=== PATIENT | female | born 1975 | race Caucasian/White ===

== ENCOUNTER 2017-09-10 00:44 | Emergency (ER) | payer SELFPAY ==
[2017-09-10] MEDS ORDERED: HYDROMORPHONE HCL INJ/PF 2 MG/ML AMPULE IV ONE ×2 (01:01→02:42)
--- NOTE | 2017-09-10 01:18 | ER Document Report ---
ED Fall - General Stated Complaint: LEFT FLANK PAIN Time Seen by Provider: 09/10/17 01:00 Mode of Arrival: Medic Information source: Patient Notes: 41-year-old female patient presents via EMS after she tripped over a yoga ball and fell hitting her left side onto a futon. Patient reports that she has severe pain to her left posterior ribs as well as some shortness of breath. EMS gave patient 75 mcg of fentanyl as well as 4 mg of Zofran IV. Patient reports past medical history of diverticulitis. TRAVEL OUTSIDE OF THE [place] IN LAST 30 DAYS: No - Related data Allergies/Adverse Reactions: No Known Allergies Allergy (Unverified 10/25/13 06:33) Past Medical History - General Information source: Patient - Social History Smoking Status: Current Some Day Smoker Chew tobacco use (# tins/day): No Frequency of alcohol use: Rare Drug Abuse: None Lives with: Family Family History: Reviewed & Not Pertinent GI Medical History: Reports: Hx Diverticulitis Past Surgical History: Reports: Hx Orthopedic Surgery - Left knee Review of Systems - Review of Systems Constitutional: No symptoms reported EENT: No symptoms reported Cardiovascular: No symptoms reported Respiratory: See HPI Gastrointestinal: No symptoms reported Genitourinary: No symptoms reported Female Genitourinary: No symptoms reported Musculoskeletal: See HPI Skin: No symptoms reported Hematologic/Lymphatic: No symptoms reported Neurological/Psychological: No symptoms reported Physical Exam - Vital signs Vitals: Resp Pulse Ox 15 98 09/10/17 00:57 09/10/17 00:57 - Notes Notes: PHYSICAL EXAMINATION: GENERAL: Well-appearing, well-nourished adult female in moderate distress. HEAD: Atraumatic, normocephalic. EYES: Pupils equal round and reactive to light, extraocular movements intact, conjunctiva are normal. ENT: Nares patent, oropharynx clear without exudates. Moist mucous membranes. NECK: Normal range of motion, supple without lymphadenopathy LUNGS: Breath sounds clear to auscultation bilaterally and equal. No wheezes rales or rhonchi. HEART: Regular rate and rhythm without murmurs ABDOMEN: Soft, nontender, nondistended abdomen. No guarding, no rebound. No masses appreciated. Female : deferred Musculoskeletal: Normal range of motion, no pitting or edema. No cyanosis. TTP to posterior surface of left ribs, mild swelling noted with no ecchymosis. NEUROLOGICAL: Cranial nerves grossly intact. Normal speech. Normal sensory, motor exams PSYCH: Normal mood, normal affect. SKIN: Warm, Dry, normal turgor, no rashes or lesions noted. Course - Re-evaluation Re-evalutation: 41-year-old female patient presenting via EMS after a mechanical fall in which she hit the posterior surface of her left ribs onto a wooden futon. Patient's lung sounds clear and equal bilaterally however patient does report significant pain with inspiration. There is an area of swelling noted as well with no ecchymosis. Will medicate patient for pain and sent for x-ray to evaluate for rib fracture. Mildly displaced (2mm) left 8th rib fracture noted on xray, No pneumothorax. Patients vitals signs stable, will d/c with pain medications. Spoke with patient at length on the importance of taking deep breaths despite the pain to prevent any complications. - Vital Signs Vital signs: Temp Pulse Resp BP Pulse Ox 97.9 F 13 100/64 94 09/10/17 02:01 09/10/17 02:01 09/10/17 02:01 09/10/17 02:01 Discharge - Discharge Clinical Impression: Left rib fracture Qualifiers: Encounter type: initial encounter Rib fracture type: single rib Fracture type: closed Qualified Code(s): S22.32XA - Fracture of one rib, left side, initial encounter for closed fracture Condition: Stable Disposition: HOME, SELF-CARE Additional Instructions: Rib Injuries and Fractures You have been diagnosed as having a broken rib. It will usually take four to six weeks for these injured ribs to heal. Sometimes, rib belts or anesthetic injections of the chest wall help reduce the pain. If you are using a rib belt, you should cough or take a deep breath at least every hour or two to prevent lung complications. You should not engage in any strenuous physical activity until released by your physician. The usual rule is "if it hurts, don't do it." Rib fractures can lead to serious lung complications including lung collapse, hemorrhage, and pneumonia. You should call the physician or return at once if any of the following occur: (1) Fever or chills. (2) Persistent cough, coughing up blood, or shortness of breath. (3) Increasing pain. (4) Weakness, lightheadedness, or fainting. Please take the medications as prescribed. Please make sure that you are taking good deep breaths. Please follow-up with your primary care provider in the next 3-5 days for a follow-up. Prescriptions: Ibuprofen 800 mg PO Q8 #40 tablet Morphine Sulfate [Morphine Ir 15 Mg Tablet] 15 mg PO Q4H PRN #12 tablet PRN Reason: Ondansetron [Zofran Odt 4 mg Tablet] 1 - 2 tab PO Q4H PRN #15 tab.rapdis PRN Reason: For Nausea/Vomiting Referrals: [facility] [NO LOCAL MD] - Follow up as needed
--- NOTE | 2017-09-10 01:55 | RADIOLOGY REPORT (SQ) ---
EXAM DESCRIPTION: XR RIBS BILATERAL WITH CHEST CLINICAL HISTORY: 41 years Female, fall, left posterior rib pain COMPARISON: None. TECHNIQUE: Four views. FINDINGS: Adequate lung volume, clear parenchyma, normal cardiac silhouette, and intact bony thorax. Left eighth posterior rib fracture with 2 mm displacement.. No pneumothorax. IMPRESSION: Left eighth posterior rib fracture. No pneumothorax. No acute cardiopulmonary findings.
[2017-09-10] MEDS ORDERED: HYDROCODONE/ACETAMINOPHEN 5-325 MG (6 TAB/ER DISP) PO PRN (02:25)
[2017-09-10] MEDS ORDERED: ONDANSETRON 4 MG TAB.RAPDIS PO ONE (02:25)
[2017-09-10 03:14] VITALS: BP 100/64
== END 2017-09-10 03:14 | disposition home or self-care (01) ==
LOC: ER 00:44
DX: S22.32XA Fracture of one rib, left side, initial encounter for closed fracture (principal); R10.9 Unspecified abdominal pain; R06.02 Shortness of breath; W01.190A Fall on same level from slipping, tripping and stumbling with subsequent striking against furniture, initial encounter; F17.200 Nicotine dependence, unspecified, uncomplicated
CPT/HCPCS: 99284; 71111; S0119; J1170

== ENCOUNTER 2017-09-15 19:12 | Emergency (ER) | payer SELFPAY ==
[2017-09-15] MEDS ORDERED: FENTANYL CITRATE INJ/PF 100 MCG/2 ML AMPUL IV ONE (20:05)
[2017-09-15] MEDS ORDERED: KETOROLAC TROMETHAMINE INJ/PF 30 MG/1 ML SDV IV ONE (20:05)
--- NOTE | 2017-09-15 20:08 | ER Document Report ---
ED Medical Screen (RME) - General Chief Complaint: Abdominal Pain Stated Complaint: ABDOMINAL/RIB PAIN Time Seen by Provider: 09/15/17 20:04 Notes: Patient was seen here last Friday after falling and injuring her ribs and was found to have a fractured left rib. She has been prescribed pain medications including narcotic medications and has now become constipated from taking those medications. Says she has not had a bowel movement since her injury. Denies nausea or vomiting. Not much cough. No fevers. Took 60 mL of milk of magnesia this afternoon. TRAVEL OUTSIDE OF THE [place] IN LAST 30 DAYS: No - Related Data Allergies/Adverse Reactions: No Known Allergies Allergy (Verified 09/15/17 19:13) Past Medical History Neurological Medical History: Reports: Hx Migraine Renal/ Medical History: Denies: Hx Peritoneal Dialysis GI Medical History: Reports: Hx Diverticulitis Past Surgical History: Reports: Hx Orthopedic Surgery - Left knee Physical Exam - Vital signs Vitals: Temp Pulse Resp BP Pulse Ox 98.2 F 76 16 106/71 97 09/15/17 19:26 09/15/17 19:26 09/15/17 19:26 09/15/17 19:26 09/15/17 19:26 Course - Vital Signs Vital signs: Temp Pulse Resp BP Pulse Ox 98.2 F 76 16 106/71 97 09/15/17 19:26 09/15/17 19:26 09/15/17 19:26 09/15/17 19:26 09/15/17 19:26
[2017-09-15 20:30] LABS: ABSOLUTE BASOPHILS # (AUTO) 0.1 10^3/uL (0.0-0.2); ABSOLUTE EOSINOPHILS # (AUTO) 0.3 10^3/uL (0.0-0.6); ABSOLUTE LYMPHOCYTES (AUTO) 2.9 10^3/uL (0.5-4.7); ABSOLUTE MONOCYTES (AUTO) 0.9 10^3/uL (0.1-1.4); ABSOLUTE NEUT (AUTO) 9.2 10^3/uL (1.7-8.2); BASOPHILS % (AUTO) 0.5 % (0-2); HEMATOCRIT 42.7 % (36.0-47.0); HEMOGLOBIN 14.5 g/dL (12.0-15.5); LYMPHOCYTES % (AUTO) 21.5 % (13-45); MEAN CORPUSCULAR HEMOGLOBIN 29.7 pg (27.0-33.4); MEAN CORPUSCULAR VOLUME 87 fl (80-97); MONOCYTES % (AUTO) 7.1 % (3-13); PLATELET COUNT 210 10^3/uL (150-450); RED BLOOD COUNT 4.89 10^6/uL (3.72-5.28); SEGMENTED NEUTROPHILS % (AUTO) 68.9 % (42-78); TOTAL CELLS COUNTED % (AUTO) 100 %; WHITE BLOOD COUNT 13.3 10^3/uL (4.0-10.5)
[2017-09-15 20:41] LABS: ALANINE AMINOTRANSFERASE 21 U/L (9-52); ALBUMIN 3.9 g/dL (3.5-5.0); ALKALINE PHOSPHATASE 38 U/L (38-126); ANION GAP 10 (5-19); ASPARTATE AMINO TRANSFERASE 13 U/L (14-36); BILIRUBIN,DIRECT 0.3 mg/dL (0.0-0.4); BILIRUBIN,TOTAL 0.4 mg/dL (0.2-1.3); BLOOD UREA NITROGEN 10 mg/dL (7-20); CALCIUM 9.3 mg/dL (8.4-10.2); CARBON DIOXIDE 27 mmol/L (22-30); CHLORIDE 102 mmol/L (98-107); GLUCOSE 91 mg/dL (75-110); LIPASE 27.1 U/L (23-300); POTASSIUM 4.7 mmol/L (3.6-5.0); SODIUM 138.5 mmol/L (137-145); TOTAL PROTEIN 6.3 g/dL (6.3-8.2)
--- NOTE | 2017-09-15 21:12 | RADIOLOGY REPORT (SQ) ---
EXAM DESCRIPTION: CHEST 2 VIEWS COMPLETED DATE/TIME: 09/15/2017 8:36 pm REASON FOR STUDY: Hx fracture left ribs, worsening pain COMPARISON: 09/10/2017 EXAM PARAMETERS: NUMBER OF VIEWS: two views TECHNIQUE: Digital Frontal and Lateral radiographic views of the chest acquired. RADIATION DOSE: NA LIMITATIONS: none FINDINGS: LUNGS AND PLEURA: No acute opacities, masses or pneumothorax. No pleural effusion. MEDIASTINUM AND HILAR STRUCTURES: No masses or contour abnormalities. HEART AND VASCULAR STRUCTURES: Heart normal size. No evidence for failure. BONES: No acute findings. Nondisplaced left posterior 8th rib fracture. HARDWARE: None in the chest. OTHER: No other significant finding. IMPRESSION: NO ACUTE RADIOGRAPHIC FINDING IN THE CHEST. TECHNICAL DOCUMENTATION: JOB ID: [id number] [place]-72 2010 [employer] All Rights Reserved Reading location - IP/workstation name: [email or web address]
--- NOTE | 2017-09-15 22:16 | ER Document Report ---
ED General - General Chief Complaint: Abdominal Pain Stated Complaint: ABDOMINAL/RIB PAIN Time Seen by Provider: 09/15/17 20:04 Mode of Arrival: Ambulatory Information source: Patient Notes: 41-year-old female presents emergency department with complaints of suprapubic abdominal pain and constipation. Patient states that she fell and broke her rib approximately a week ago. She was started on narcotic medication for pain management. Patient states that she has been taking this medication and she has been constipated. Patient states that she has not had a bowel movement in the last week. She states that now she is getting some abdominal discomfort. Patient has tried [id number] medication without any symptom relief. She has not tried an enema. She states that she is not currently on any narcotic medication. She denies nausea, vomiting, diarrhea, dysuria, hematuria, vaginal bleeding or vaginal discharge. TRAVEL OUTSIDE OF THE [place] IN LAST 30 DAYS: No - HPI Onset: Last week Onset/Duration: Gradual Quality of pain: Achy, Fullness Pain Level: 4 Associated symptoms: Other - constipation Exacerbated by: Denies Relieved by: Denies Similar symptoms previously: No Recently seen / treated by doctor: No - Related Data Allergies/Adverse Reactions: No Known Allergies Allergy (Verified 09/15/17 19:13) Past Medical History - Social History Smoking Status: Never Smoker Family History: Reviewed & Not Pertinent Patient has suicidal ideation: No Patient has homicidal ideation: No Neurological Medical History: Reports: Hx Migraine Renal/ Medical History: Denies: Hx Peritoneal Dialysis GI Medical History: Reports: Hx Diverticulitis Past Surgical History: Reports: Hx Orthopedic Surgery - Left knee Review of Systems - Review of Systems Constitutional: No symptoms reported EENT: No symptoms reported Cardiovascular: No symptoms reported Respiratory: No symptoms reported Gastrointestinal: Constipation Genitourinary: No symptoms reported Musculoskeletal: No symptoms reported Skin: No symptoms reported Neurological/Psychological: No symptoms reported -: Yes All other systems reviewed and negative Physical Exam - Vital signs Vitals: Temp Pulse Resp BP Pulse Ox 98.2 F 76 16 106/71 97 09/15/17 19:26 09/15/17 19:26 09/15/17 19:26 09/15/17 19:26 09/15/17 19:26 Interpretation: Normal - Notes Notes: PHYSICAL EXAMINATION: GENERAL: Well-appearing, well-nourished and in no acute distress. HEAD: Atraumatic, normocephalic. EYES: Pupils equal round and reactive to light, extraocular movements intact, conjunctiva are normal. ENT: Nares patent, oropharynx clear without exudates. Moist mucous membranes. NECK: Normal range of motion, supple without lymphadenopathy LUNGS: Breath sounds clear to auscultation bilaterally and equal. No wheezes rales or rhonchi. HEART: Regular rate and rhythm without murmurs ABDOMEN: Soft, tenderness to palpation in the suprapubic area, nondistended abdomen. No guarding, no rebound. No masses appreciated. Female : deferred Musculoskeletal: Normal range of motion, no pitting or edema. No cyanosis. NEUROLOGICAL: Cranial nerves grossly intact. Normal speech, normal gait. Normal sensory, motor exams PSYCH: Normal mood, normal affect. SKIN: Warm, Dry, normal turgor, no rashes or lesions noted. Course - Re-evaluation Re-evalutation: 09/15/17 23:55 Labs and imaging obtained. Labs are within normal limits. XR shows stool. No free air or air fluid levels. Patient given a soap suds enema with mineral oil. Patient says that she had a small bowel movement. Feeling a little better. Declines a second enema. Says that she'll continue with outpatient treatment. She says she has mineral oil, fleets enema, and milk of magnesia at home. I told patient to follow up with her primary care physician this week and to return for worsening symptoms. Patient is agreeable with the plan of care. - Vital Signs Vital signs: Temp Pulse Resp BP Pulse Ox 98.2 F 76 16 106/71 97 09/15/17 19:26 09/15/17 19:26 09/15/17 19:26 09/15/17 19:26 09/15/17 19:26 - Laboratory Result Diagrams: 09/15/17 20:20 09/15/17 20:20 Laboratory results interpreted by me: 09/15/17 09/15/17 09/15/17 20:20 20:20 22:50 WBC 13.3 H Absolute Neutrophils 9.2 H Creatinine 0.51 L AST 13 L Urine Ketones 20 H Urine Blood MODERATE H Discharge - Discharge Clinical Impression: Constipation Qualifiers: Constipation type: drug induced constipation Qualified Code(s): K59.03 - Drug induced constipation Condition: Stable Disposition: HOME, SELF-CARE Instructions: Abdominal Pain ([facility]), Constipation ([facility]) Additional Instructions: Follow up with your primary care physician this week. Take medication as directed. Return for worsening symptoms. Referrals: MARINO WHITNEY MD [ACTIVE STAFF] - Follow up as needed
--- NOTE | 2017-09-15 23:06 | RADIOLOGY REPORT (SQ) ---
EXAM DESCRIPTION: XR ABDOMEN 2 VIEWS SUPINE ERECT COMPLETED DATE/TME: 09/15/2017 22:12 CLINICAL HISTORY: 41 years, Female, abdominal pain COMPARISON: None. FINDINGS: Upright and supine views of the abdomen. Bowel: No dilated loops of large or small bowel. Peritoneum: No free intraperitoneal air identified. Solid organs: No definite organomegaly. Calcifications: 0.7 cm calcification overlies interpolar right kidney. Bones: No acute osseous abnormalities. Other: No additional findings. IMPRESSION: 1. Nonobstructive bowel gas pattern. 2. Right nephrolithiasis.
[2017-09-15] MEDS ORDERED: MINERAL OIL 30 ML UDCUP PR ONE (23:10)
[2017-09-15 23:18] LABS: APPEARANCE,URINE SLIGHTLY-CLOUDY; BILIRUBIN,URINE NEGATIVE (NEGATIVE); COLOR,URINE YELLOW; GLUCOSE, URINE NEGATIVE (NEGATIVE); KETONES,URINE 20 mg/dL (NEGATIVE); LEUKOCYTE ESTERASE,URINE NEGATIVE (NEGATIVE); NITRITE,URINE NEGATIVE (NEGATIVE); PROTEIN,URINE NEGATIVE (NEGATIVE); URINE SPECIFIC GRAVITY 1.025; UROBILINOGEN,URINE NEGATIVE mg/dL (<2.0)
[2017-09-15] MEDS ORDERED: NORMAL SALINE 1000 ML 1,000 ML IV ONE (23:25)
[2017-09-16 00:47] VITALS: BP 110/77
== END 2017-09-16 00:47 | disposition home or self-care (01) ==
LOC: ER 19:12
DX: K59.03 Drug induced constipation (principal); R07.81 Pleurodynia; R10.30 Lower abdominal pain, unspecified
CPT/HCPCS: 99284; 96374; 96375; 36415; 83690; 85025; 80053; 81001; 74019; 71046; J3010; J1885; J3490

== ENCOUNTER 2018-02-27 09:07 | Emergency (ER) | payer SELFPAY ==
[2018-02-27] MEDS ORDERED: IBUPROFEN 600 MG TABLET PO ONE (09:39)
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
[2018-02-27 10:35] VITALS: BP 126/83
== END 2018-02-27 10:40 | disposition home or self-care (01) ==
LOC: ER 09:07
DX: S40.012A Contusion of left shoulder, initial encounter (principal); S40.011A Contusion of right shoulder, initial encounter; S40.022A Contusion of left upper arm, initial encounter; S69.92XA Unspecified injury of left wrist, hand and finger(s), initial encounter; M79.642 Pain in left hand; Y04.8XXA Assault by other bodily force, initial encounter; F17.210 Nicotine dependence, cigarettes, uncomplicated
CPT/HCPCS: 99406; 99284; 73130; 73110; L3908